=== PATIENT | male | born 1995 | race Caucasian/White ===

== ENCOUNTER 2017-10-28 17:14 | Emergency (ER) | payer BC ==
[~2017-10-28] VITALS: Ht 167.6 cm; Wt 72.3 kg
[~2017-10-28 17:14] MED LIST: LORATADINE10 M2; RANITIDINE HCL150 MG
[2017-10-28] MEDS ORDERED: PREDNISONE20 MG PO (19:08)
[2017-10-28] MEDS ORDERED: ROBITUSSIN100 MG/5 M PO (19:08)
[2017-10-28] MEDS ORDERED: FLONASE16 G1 BOTH NARES (19:09)
[2017-10-28 19:32] VITALS: BP 106/59
== END 2017-10-28 19:32 | disposition home or self-care (01) ==
LOC: EME 17:14
PROVIDERS: Nurse Practitioner Family
DX: J06.9 Acute upper respiratory infection, unspecified (principal); Z88.6 Allergy status to analgesic agent
CPT/HCPCS: 71046; 87502; 99281; 99284